=== PATIENT | female | born 1970 | race Caucasian/White ===

== ENCOUNTER 2018-08-20 06:32 | Emergency (ER) | payer MEDICAID ==
[~2018-08-20] VITALS: Wt 90.0 kg
[2018-08-20 06:34] VITALS: BP 143/64; PULSE 89; RESP 18
[2018-08-20] MEDS ORDERED: KETOROLAC 30 MG INJ IM STA (07:26)
--- NOTE | 2018-08-20 07:26 | ERD ---
ER Documentation Chief Complaint Chief Complaint back pain HPI 48-year-old female, previously healthy, presents to the emergency department, complaining of 3 weeks with persistent mid back pain. The patient denies history of trauma, however, she works in a factory with persistent, repetitive movements of the mid back. The pain is dull, constant, 3/10. She denies any distal weakness, numbness or tingling. ROS All systems reviewed and are negative except as per history of present illness. Medications Home Meds Active Scripts Baclofen* (Baclofen*) 10 Mg Tablet, 10 MG PO QHS, #10 TAB Prov:ETHAN WOOD MD 08/20/18 Ibuprofen* (Motrin*) 400 Mg Tab, 400 MG PO Q8, #30 TAB Prov:ETHAN WOOD MD 08/20/18 Acetaminophen* (Tylenol*) 325 Mg Tablet, 2 TAB PO Q8 PRN for PAIN AND OR ELEVATED TEMP, #20 TAB Prov:ETHAN WOOD MD 08/20/18 Allergies Allergies: Coded Allergies: No Known Allergy (Unverified , 08/20/18) PMhx/Soc Medical and Surgical Hx: pt denies Surgical Hx Hx Neurological Disorder: No Hx Respiratory Disorders: No Hx Cardiac Disorders: Yes (HYPERCHOLESTEROLEMIA) Hx Psychiatric Problems: No Hx Miscellaneous Medical Probl: Yes (DM) Hx Alcohol Use: No Hx Substance Use: No Hx Tobacco Use: No Smoking Status: Never smoker FmHx Family History: No diabetes, No coronary disease Physical Exam Vitals Vital Signs Date Temp Pulse Resp B/P (MAP) Pulse Ox O2 O2 Flow FiO2 Time Delivery Rate 08/20/18 97.2 89 18 143/64 99 06:34 (90) Physical Exam Const: No acute distress Head: Atraumatic Eyes: Normal Conjunctiva ENT: Normal External Ears, Nose and Mouth. Neck: Full range of motion. No meningismus. Resp: Clear to auscultation bilaterally Cardio: Regular rate and rhythm, no murmurs Abd: Soft, non tender, non distended. Normal bowel sounds Skin: No petechiae or rashes Back: Normal inspection, no vertebral tenderness, mid back muscle spasm. Full range of motion. Ext: No cyanosis, or edema Neur: Awake and alert Psych: Normal Mood and Affect Results 24 hrs Laboratory Tests Test 08/20/18 07:34 08/20/18 07:36 Bedside Urine pH (LAB) 7.0 Bedside Urine Protein (LAB) Negative Bedside Urine Glucose (UA) Negative Bedside Urine Ketones (LAB) Negative Bedside Urine Blood Negative Bedside Urine Nitrite (LAB) Negative Bedside Urine Leukocyte Esterase (L Trace POC Beta HCG, Qualitative NEGATIVE Current Medications Medications Dose Sig/Omid Start Time Status Last (Trade) Ordered Route PRN Stop Time Admin Dose Reason Admin Ketorolac 30 mg ONCE STAT 08/20/18 DC 08/20/18 Tromethamine IM 07:26 07:46 (Toradol) 08/20/18 07:28 Patient: REAGAN BRIDGES : 1970 Age: 48 Sex: F MR #: [id number] DOS: 08/20/18725 Ordering MD: ETHAN WOOD MD Location: [facility] Room/Bed: PROCEDURE: XR thoracic Spine. CLINICAL INDICATION: back pain TECHNIQUE: AP, lateral and swimmer's views of the thoracic spine were obtained. COMPARISON: No prior studies are available for comparison. FINDINGS: There is normal vertebral mineralization and alignment. No acute fracture or subluxation is seen. The disc spaces are normal in appearance. The posterior elements are unremarkable. The soft tissues appear normal. IMPRESSION: Unremarkable thoracic spine. .Juvenal Davis MD, MD Date Time Electronically viewed and signed by .Juvenal Davis MD, MD on 08/20/2018 08:30 Procedures/MDM Differential diagnosis include but not limited to: lumbar sprain/strain, sciatica, herniated disk, UTI less likely pyelo, kidney stone. Neurovascular exam grossly intact. no clinical findings suggestive of acute infectious process, no acute deformity, no edema, no rashes. Physical examination and clinical presentation consistent most likely with acute back strain. During the ED course the patient received treatment with Toradol IM presenting overall improvement of the symptoms. Results and clinical impression discussed with the patient who agrees with management. The patient is stable to be treated outpatient and will be discharged home with recommendations and close monitoring The patient was instructed to follow up with the primary care provider in the next 48h. If symptoms persist, worsen or new symptoms develop, then patient should return to the ED immediately. Instructions explained and given to patient with acknowledgment and demonstrated understanding. Disclaimer: Inadvertent spelling and grammatical errors are likely due to EHR/dictation software use and do not reflect on the overall quality of patient care. Also, please note that the electronic time recorded on this note does not necessarily reflect the actual time of the patient encounter. Departure Diagnosis: Primary Impression: Strain of mid-back Condition: Stable Additional Instructions: Muchas deya por [facility] para moore servicio. Esperamos que en moore visita a la itzel de emergencia moore problema medico haya sido solucionado y que se sienta mucho mejor. Para estar seguros que moore mejoria sigue en proceso, le pedimos el favor de hacer jasmyn scarlett de seguimiento medico con moore doctor primario en los proximos 2-4 jarrett. Lleve con usted estos documentos y las medicinas recetadas. Si archie sintomas empeoran, NO SE ESPERE, por favor regrese a itzel de emergencia INMEDIATAMENTE. En yodit que usted no tenga un mdico de atencin primaria: Llame al mdico o clnica comunitaria de referencia que aparece abajo andre las horas de consultorio para hacer jasmyn scarlett para que le vean. CLINICAS: [facility] [phone] [facility] [phone] [facility] [phone] [facility] [phone] [facility] [phone] [facility]. [phone] ETHAN TOBIAS MD Aug 20, 2018 07:26
[2018-08-20] MEDS ORDERED: BACL10TA PO (07:57)
[2018-08-20] MEDS ORDERED: ACET325T33 PO (07:57)
[2018-08-20] MEDS ORDERED: IBUP-1561 PO (07:57)
== END 2018-08-20 08:50 | disposition home or self-care (01) ==
LOC: FTE 06:32
DX: S29.012A Strain of muscle and tendon of back wall of thorax, initial encounter (principal); E11.9 Type 2 diabetes mellitus without complications; X58.XXXA Exposure to other specified factors, initial encounter; Y92.9 Unspecified place or not applicable
CPT/HCPCS: 72072; 81003; 81025; 96372; J1885; Z7502